=== PATIENT | male | born 1965 | race Caucasian/White ===

== ENCOUNTER → 2018-08-18 | Outpatient (CLI) | payer MEDICARE, OTHER ==
--- NOTE | 2018-08-18 14:28 | MR ---
EXAMINATION TYPE: MR shoulder LT wo con DATE OF EXAM: 08/18/2018 COMPARISON: Outside radiographs of the left shoulder dated 08/17/2018 HISTORY: Left shoulder pain TECHNIQUE: Multiplanar, multisequence imaging of the left shoulder is performed without contrast. FINDINGS: Rotator Cuff: There is a partial thickness intrasubstance 7 x 7 mm tear of the supraspinatus distal t endon fibers. There is severe bursal surface fiber fraying of the supraspinatus and moderate tendinos is with alteration of the intrinsic supraspinatus signal. There is also fluid within the subdeltoid/s ubcoracoid bursa extending along the curvature of the anterior aspect of the supraspinatus. Focal fis sure is seen of the conjoined tendon between the supraspinatus and infraspinatus such as on sagittal series 501 PD fat-sat image 10 through 12. There is a partial thickness bursal surface tear of the anterior fibers of the infraspinatus measurin g 1.1 x 1.3 cm. This is superimposed upon moderate tendinopathy and bursal surface fiber fraying. The infraspinatus and subscapularis are of unremarkable muscle volume and signal. However there is sl ight fraying of the distal insertional fibers of the subscapularis and may extend to the bicipital gr oove. Acromioclavicular Joint: Mild acromioclavicular arthropathy is seen as capsular hypertrophy and milan nal osteophytes without significant impression upon the supraspinatus. No significant internal imping ement. No significant downsloping of the acromion. Glenohumeral Joint: Mild glenohumeral arthropathy is noted as there are subchondral cysts within the glenoid and joint space narrowing. Labrum: There is an anterior inferior glenoid labral tear with associated small paralabral cysts. Biceps Tendon: The long head of biceps is in normal location within bicipital groove. There is attenu ation of the intra-articular portion of the biceps as it inserts on the glenoid labrum. Bone marrow signal: No focal abnormal marrow signal is appreciated. Small amount of joint fluid is seen in the axillary recess. Fluid is also seen within the subcoracoid and subdeltoid/subacromial bursa, small volume.. IMPRESSION: 1. Partial-thickness intrasubstance tear of the supraspinatus measuring 7 x 7 mm superimposed upon mo derate tendinopathy with severe bursal surface fiber. 2. Partial-thickness bursal surface tear of the anterior fibers of the infraspinatus measuring 1.1 x 1.3 cm superimposed upon moderate tendinopathy also with bursal surface fraying. 3. Mild tendinopathy of the insertional fibers of the subscapularis. 4. Mild acromioclavicular arthropathy without internal impingement and mild glenohumeral arthropathy. 5. Anterior inferior glenoid labral tear with small associated paralabral cysts. 6. Small volume fluid within the axillary recess, subcoracoid bursa, and subdeltoid/subacromial bursa . Bursal fluid may clinically relate to bursitis.
== END ==
LOC: RADMRIMAIN 11:53
PROVIDERS: ATTEND Orthopaedic Surgery
DX: M75.102 Unspecified rotator cuff tear or rupture of left shoulder, not specified as traumatic (principal); M75.92 Shoulder lesion, unspecified, left shoulder; M19.012 Primary osteoarthritis, left shoulder; S43.492A Other sprain of left shoulder joint, initial encounter

== ENCOUNTER → 2021-09-14 | Outpatient (CLI) | payer MEDICARE, OTHER ==
--- NOTE | 2021-09-14 09:59 | XR ---
EXAMINATION TYPE: XR chest 2V DATE OF EXAM: 09/14/2021 COMPARISON: NONE HISTORY: Z01.818,M75.42 TECHNIQUE: Frontal and lateral views of the chest are obtained. FINDINGS: There is no focal air space opacity, pleural effusion, or pneumothorax seen. The cardiac silhouette size is within normal limits. There are prominent lung volumes with flattening the hemidia phragms. The osseous structures are intact, arthropathy noted at the acromioclavicular joints, there is thoracic spondylosis. IMPRESSION: No acute cardiopulmonary process.
[2021-09-14 10:24] LABS: African American GFR (CKD) >90 (>60 ml/min/1.73 sqM); Anion Gap 8 mmol/L; Blood Urea Nitrogen 21 mg/dL (9-20); Calcium 9.2 mg/dL (8.4-10.2); Carbon Dioxide 26 mmol/L (22-30); Chloride 104 mmol/L (98-107); Glucose 103 mg/dL (74-99); Non-African American GFR(CKD) >90 (>60 ml/min/1.73 sqM); Potassium 4.3 mmol/L (3.5-5.1); Sodium 138 mmol/L (137-145)
[2021-09-14 10:30] LABS: Basophils % (A) 1 %; Eosinophils # (A) 0.1 k/uL (0-0.7); Eosinophils % (A) 2 %; HCT 43.3 % (39.0-53.0); HGB 14.5 gm/dL (13.0-17.5); Lymphocytes # (A) 1.5 k/uL (1.0-4.8); Lymphocytes % (A) 21 %; MCH 32.1 pg (25.0-35.0); MCHC 33.6 g/dL (31.0-37.0); MCV 95.5 fL (80.0-100.0); Mean Platelet Volume 8.2; Monocytes # (A) 0.4 k/uL (0-1.0); Monocytes % (A) 6 %; Neutrophils # (A) 4.7 k/uL (1.3-7.7); Neutrophils % (A) 69 %; Platelet Count 188 k/uL (150-450); RBC 4.53 m/uL (4.30-5.90); RDW 11.9 % (11.5-15.5); WBC 6.8 k/uL (3.8-10.6)
== END | disposition home or self-care (01) ==
LOC: LABPAT 08:52
PROVIDERS: ATTEND Orthopaedic Surgery
DX: Z01.812 Encounter for preprocedural laboratory examination (principal); M75.42 Impingement syndrome of left shoulder
CPT/HCPCS: 36415; 71046; 80048; 85025; 93005

== ENCOUNTER 2021-09-18 05:33 | Day surgery (SDC) | payer MEDICARE, OTHER ==
[2021-09-11 14:11] VITALS: BMI 25.7
--- NOTE | 2021-09-17 12:18 | HP ---
HISTORY AND PHYSICAL CHIEF COMPLAINT: Left shoulder pain. HISTORY OF PRESENT ILLNESS: The patient is a 56-year-old, right-hand dominant male who presents with progressive left shoulder pain for the past several years, worsening over the past couple of months. He is having pain with overhead use and at night. He notes a bothersome daily. He has tried medications in addition to previous injections and therapy without much relief. He notes it significantly limits him. PAST MEDICAL HISTORY: Significant for bipolar disorder. PAST SURGICAL HISTORY: Significant for right shoulder rotator cuff repair. CURRENT MEDICATIONS: Ibuprofen and Tylenol. ALLERGIES: He denies drug allergies. FAMILY HISTORY: Significant for diabetes and cancer. SOCIAL HISTORY: Significant for current tobacco use. REVIEW OF SYSTEMS: Sixteen-point review of systems otherwise reviewed and is noncontributory. PHYSICAL EXAMINATION: On examination, the patient is approximately 6 feet tall, 200 pounds of mesomorphic habitus. HEENT exam is nonfocal. Neck is supple. On examination of the left shoulder he is tender about the anterior subacromial space in the bicipital groove. He has moderate subacromial crepitus. Active range of motion forward elevation 155 degrees, external rotation with arm at side 65 degrees, internal rotation to L2. Motor strength 5-/ 5 for external rotation with the arm at the side, 4+/5 for abduction. Impingement test, NEER test, and Speed test are positive. His distal neurovascular exam appears intact in the left upper extremity. X-rays of the left shoulder obtained in the office show a type 3 acromion with maintained humeral head to acromial distance. MRI report left shoulder from 08/18/2018 shows partial-thickness rotator cuff tear involving the supraspinatus and infraspinatus along with bicipital tendinosis. IMPRESSION: 1. Left shoulder impingement with possible rotator cuff tear. 2. Left proximal bicipital tendinosis. RECOMMENDATIONS: I talked to the patient at length regarding his condition along with treatment options. At this point he remains quite symptomatic despite previous conservative measures. After a thorough discussion, he opts to proceed with surgery. We will plan to proceed with arthroscopic evaluation with probable subacromial decompression, rotator cuff debridement versus repair and possible biceps tenotomy. Risks and benefits were discussed at length in layman's terms. We will likely perform as an outpatient procedure. MMODL / IJN: [id number] /
[2021-09-18] MEDS ORDERED: ONDANSETRON 4 MG/2 ML VIAL IVP ONE (05:53)
[2021-09-18] MEDS ORDERED: DEXAMETHASONE SOD PHOSPHATE 4 MG/ML 1 ML VIAL IV ONE (05:53)
[2021-09-18] MEDS ORDERED: HYDROmorphone 0.5 MG/0.5 ML SYRINGE IVP PRN (05:53)
[2021-09-18] MEDS ORDERED: LACTATED RINGERS 1,000 ML IV SCH (05:53)
[2021-09-18] MEDS ORDERED: MIDAZOLAM 2 MG/2 ML VIAL IVP ONE (06:43)
[2021-09-18] MEDS ORDERED: LIDOCAINE 1% INJ 10MG/ML (20 ML MDV) ONE (07:00)
[2021-09-18] MEDS ORDERED: ROPIVACAINE 5 MG/ML 30 ML VIAL ONE (07:00)
[2021-09-18] MEDS ORDERED: ePHEDrine 50 MG/ML 1 ML AMP ONE (07:00)
[2021-09-18] MEDS ORDERED: PHENYLEPHRINE-0.9% NACL SYG 1,000 MCG/10 ML SYRINGE ONE (07:00)
[2021-09-18] MEDS ORDERED: PROPOFOL 10 MG/ML 20 ML VIAL IV ONE (07:00)
[2021-09-18] MEDS ORDERED: SUCCINYLCHOLINE CHLORIDE 100 MG/5 ML SYR IV ONE (07:00)
[2021-09-18] MEDS ORDERED: EPINEPHrine (PF) 1 ML in SODIUM CHLORIDE 0.9% IRRIGATIO 3,000 ML IRRIGATION ONE ×7 (07:49→07:50)
--- NOTE | 2021-09-18 08:24 | P.OP ---
Date of Procedure: 09/18/21 Preoperative Diagnosis: Symptomatic left shoulder impingement/rotator cuff tear Postoperative Diagnosis: Same in addition to high-grade partial-thickness tear proximal biceps Procedure(s) Performed: Left shoulder arthroscopic subacromial decompression/biceps tenotomy/rotator cuff repair Implants: Arthrex 4.75 mm swivel lock anchor 1, 5.5 mm swivel lock anchor 1 Anesthesia: tess BETH Surgeon: Corey Rodriguez [employer] #1: Kendall Heller Estimated Blood Loss (ml): 10 Pathology: none sent Condition: stable Disposition: PACU Indications for Procedure: The patient's a 56-year-old male who presents with progressive left shoulder pain despite conservative measures. A discussion of the risks and benefits of operative intervention versus continued conservative measures was made with patient. He opted to proceed with surgery. Operative risks to include infection, neurovascular injury, development of blood clots, possible tendon rerupture, possible need for subsequent procedures was discussed. Informed consent was obtained. Operative Findings: As below Description of Procedure: The patient was brought to the operating room, and after induction of general anesthesia was placed in a beachchair position. A preoperative interscalene block was placed for postoperative analgesia. I examined the left shoulder. There was no gross block to passive motion or gross glenohumeral instability. The left upper extremity was prepped and draped in normal fashion. The bony outlines the acromion, distal clavicle, and coracoid process were outlined with a skin marker. The glenohumeral joint was inflated with 50 mL of saline utilizing a spinal needle from posterior approach. A posterior portal was made through a 5 mm skin incision 1 cm medial and inferior to the posterior lateral border time. A blunt trocar was used to easily into the joint. Diagnostic arthroscopy was performed. An anterior portal was made just lateral to the coracoid process entering the joint above the subscapularis tendon. The subscapularis tendon appeared to be intact. Anterior labrum was intact. The inferior recess was inspected. The posterior labrum was intact. There was a high-grade partial-thickness tear of the long head of the biceps involving interarticular portion. It was elected to proceed with release at this point. This was released from the superior labrum with electrocautery and was allowed to retract to the bicipital groove. On inspection the rotator cuff, a full- thickness tear involving the supraspinatus measuring approximately 2 cm was noted there was mild retraction. The arthroscope was placed into the subacromial space. A lateral portal was made 2 centimeters inferior to the anterior lateral border of the acromion. The rotator cuff was then mobilized with a traction suture. This was then easily brought back to the greater tuberosity. The soft tissue on the undersurface of the acromion was debrided with a motorized shaver and electrocautery clearly defining the anterior medial and lateral borders as well as the distal clavicle. An anterior inferior acromioplasty was performed with a motorized mary alice starting anterolateral, then extending this posteriorly, then extending this medially. I converted to a flat acromion and this was verified in the posterior and lateral viewing portals. The greater tuberosity was lightly decorticating with a shaver down to a bleeding bony surface. An accessory superior lateral portals made just off the lateral edge of the acromion for anchor placement. A 4.75 mm swivel lock anchor preloaded with fiber tape was then placed just off the articular surface with the appropriate starting awl. Good purchase was obtained. These fiber tapes were then passed the rotator cuff with a scorpion suture passer. A fiber link was placed in the center of the tear for additional fixation. A lateral row was created crisscrossing these tapes. A 5.5 mm swivel lock anchor was placed laterally with good purchase. Good purchase was obtained. Final arthroscopic view showed adequate compression at the footprint. The arthroscope was then removed. The portals were closed with simple 3-0 nylon sutures. A sterile dressing was applied in addition to a sling. The patient was then awoken from general anesthesia and transferred to recovery room in good condition. Blood loss was estimated at 10 mL. No complications were incurred. Sponge and needle counts were correct in the case. Kendall CAMARA assisted and the major components of the case to include arm positioning, anchor placement, and rotator cuff repair.
[2021-09-18 08:33] VITALS: RESP 16; TEMP 97.4
[2021-09-18] MEDS ORDERED: LACTATED RINGERS 1,000 ML IV ONE (08:54)
[2021-09-18 09:45] VITALS: BP 111/67; PULSE 82
--- NOTE | 2021-09-18 14:45 | P.ANPRN ---
Procedure Note - Anesthesia - Nerve Block Performed Left Interscalene Single Time Out Performed: Yes ([id number]) Date of Procedure: 09/18/21 Procedure Start Time: 06:43 Procedure Stop Time: 06:51 Location of Patient: PreOp Indication: Acute Post-Operative Pain, Requested by Surgeon Specifically requested for management of pain by : Corey Rodriguez Sedation Type: Sedate with meaningful contact maintained Preparation: Sterile Prep Position: Supine Catheter: None Needle Types: Pajunk Needle Gauge: 21 Ultrasound used to visualize needle placement: Yes Ultrasound used to observe medication spread: Yes Injectate: 0.5% Ropivacaine (see comment for volume) (30cc) Blood Aspirated: No Pain Paresthesia on Injection Noted: No Resistance on Injection: Normal Image Stored and Saved: Yes Events: Uneventful and Well Tolerated
== END 2021-09-18 10:09 | disposition home or self-care (01) ==
LOC: OR 05:33
PROVIDERS: ATTEND Orthopaedic Surgery
DX: M75.42 Impingement syndrome of left shoulder (principal); M75.22 Bicipital tendinitis, left shoulder; M75.122 Complete rotator cuff tear or rupture of left shoulder, not specified as traumatic; S46.112A Strain of muscle, fascia and tendon of long head of biceps, left arm, initial encounter; X58.XXXA Exposure to other specified factors, initial encounter; F31.9 Bipolar disorder, unspecified; F17.290 Nicotine dependence, other tobacco product, uncomplicated; K21.9 Gastro-esophageal reflux disease without esophagitis; Z98.890 Other specified postprocedural states; Z83.3 Family history of diabetes mellitus; Z80.9 Family history of malignant neoplasm, unspecified
CPT/HCPCS: 64415; 76942; 29826; 29827; 29822; C1713 ×2; C1894; J2250; J1100; J0690; J2405; J0171; J2001; J2795; J2370; J0330; J2704